=== PATIENT | male | born 1995 | race African-American/Black ===

== ENCOUNTER 2017-12-01 07:41 | Emergency (ER) | payer SELFPAY ==
[~2017-12-01] VITALS: Ht 162.6 cm; Wt 77.1 kg
[2017-12-01 07:42] VITALS: BP 144/84
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
== END 2017-12-01 08:09 | disposition home or self-care (01) ==
LOC: MED 07:41
DX: Z02.89 Encounter for other administrative examinations (principal); S80.212A Abrasion, left knee, initial encounter; S80.211A Abrasion, right knee, initial encounter; V49.50XA Passenger injured in collision with unspecified motor vehicles in traffic accident, initial encounter; Y93.89 Activity, other specified; Y92.488 Other paved roadways as the place of occurrence of the external cause; Y99.8 Other external cause status
CPT/HCPCS: 99283